=== PATIENT | male | born 1950 | race Caucasian/White ===

== ENCOUNTER → 2021-04-27 15:21 | Outpatient (CLI) | payer OTHER, SELFPAY ==
--- NOTE | 2021-04-27 15:31 | DI.ECHO.S_ITS ---
[facility] +---------+ : : [address] : : : : [id number] : : : : Phone: [phone]+ Echocardiogram Report + + :Name: GUY ANDERSON Study Date: 04/27/2021 Height: 73 in : :[facility] ReadingLocation: Weight: 295 lb : : Gender: Male BSA: 2.5 m2 : :: 1950 Age: 70 yrs BP: 180/79 mmHg: :Reason For Study: ENCOUNTER FOR GENERAL ADULT MEDICAL : :EXAMINATION : :Ordering Physician: NATE, : :HECTOR Performed By: China Ramos : :Referring: HECTOR SULLIVAN : + + Interpretation Summary The left ventricle is normal in size. Left ventricular systolic function appears normal without focal wall motion abnormalities. The ejection fraction is estimated to be 65-70%. Diastolic parameters suggest a relaxation abnormality of the left ventricle, consistent with probable normal filling pressures. The right ventricle is normal size. Right ventricular systolic function is at the lower limits of normal. The left atrial size is normal. Right atrial size is normal. There is no significant valvular heart disease. The ascending aorta is mildly enlarged. Procedure: A two-dimensional transthoracic echocardiogram with color flow and Doppler was performed. The study quality was technically difficult. A contrast injection of Definity was performed to improve assessment of LV function. Comparison is made with the echocardiogram of 09/01/2020. The patient was in sinus rhythm with heart rates between 74-83 bpm during the exam. Left Ventricle: The left ventricle is normal in size. There is mild concentric left ventricular hypertrophy. Left ventricular systolic function appears normal without focal wall motion abnormalities. The ejection fraction is estimated to be 65-70%. Diastolic parameters suggest a relaxation abnormality of the left ventricle, consistent with probable normal filling pressures. Right Ventricle: The right ventricle is normal size. Right ventricular systolic function is at the lower limits of normal. Atria: The left atrial size is normal. Right atrial size is normal. There is no Doppler evidence for an interatrial shunt. Mitral Valve: The mitral valve is normal in structure and function. There is trace mitral regurgitation. Aortic Valve: The aortic valve is grossly normal. The aortic valve is slightly calcified. There is no aortic valve stenosis. No aortic regurgitation is present. Tricuspid Valve: The tricuspid valve is normal in structure and function. There is trace tricuspid regurgitation. Pulmonic Valve: The pulmonic valve is not well visualized. There is no pulmonic valvular regurgitation. There is no significant valvular heart disease. Great Vessels: The aortic root is normal size. The ascending aorta is mildly enlarged. Pericardium/ Pleura There is no pericardial effusion. There is no pleural effusion. MMode/2D Measurements & Calculations LVIDd: 4.3 cm LVOT diam: 2.3 cm LVIDs: 3.0 cm Ao root diam: 3.4 cm FS: 29.0 % asc Aorta Diam: 3.8 cm IVSd: 1.4 cm LVPWd: 1.2 cm LV razo. diameter/BSA (cm/m^2): 1.7 LV sys. diameter/BSA (cm/m^2): 1.2 LA A2 area: 15.6 cm2 RA long axis: 5.7 cm LA A4 area: 21.5 cm2 RA area: 18.5 cm2 LA length (vol): 6.4 cm RA vol: 51.0 ml LA vol: 44.6 ml RA : 20.1 ml/m2 LA vol index: 17.6 ml/m2 RVD1 (basal): 3.5 cm TAPSE: 1.6 cm Doppler Measurements & Calculations Ao V2 max: 132.8 cm/sec LVOT Max Raymond: 84.7 cm/sec Ao V2 mean: 96.4 cm/sec LV V1 max P.9 mmHg Ao max P.1 mmHg LV V1 VTI: 16.3 cm Ao mean P.1 mmHg AZIZA(I,D): 2.7 cm2 Ao V2 VTI: 26.1 cm AZIZA(V,D): 2.7 cm2 sev ratio: 0.62 AZIZA indexed to BSA (cm^2/m^2): 1.1 MV E max raymond: 47.2 cm/sec PA V2 max: 99.1 cm/sec MV A max raymond: 64.6 cm/sec PA V2 mean: 68.1 cm/sec MV E/A: 0.73 PA mean P.1 mmHg Med Peak E' Raymond: 6.7 cm/sec PA pr(Accel): 32.8 mmHg E/E' med: 7.0 Lat Peak E' Raymond: 8.3 cm/sec E/E' lat: 5.7 E/e' average: 6.4 MV dec time: 0.29 sec SV(LVOT): 70.3 ml Reading Physician:06:55 PM
== END ==
PROVIDERS: PCP Physician Assistant; Referring Provider Physician Assistant; Visit Provider Physician Assistant
DX: Z00.00 Encounter for general adult medical examination without abnormal findings (principal); I77.89 Other specified disorders of arteries and arterioles
CPT/HCPCS: C8929; Q9957